=== PATIENT | male | born 1940 | race Caucasian/White ===

== ENCOUNTER 2022-08-16 05:27 | Observation (INO) ==
[2022-08-16] MEDS ORDERED: LACTATED RINGERS 1,000 ML IV SCH (06:00)
[2022-08-16] MEDS ORDERED: ceFAZolin 2,000 MG/50 ML DUPLEX IV ONE (06:30)
[2022-08-16] MEDS ORDERED: VANCOMYCIN INJ 1,000 MG in SODIUM CHLORIDE 0.9% 250 ML IV ONE (06:30)
[2022-08-16] MEDS ORDERED: ACETAMINOPHEN 500 MG TABLET PO ONE (07:29)
[2022-08-16] MEDS ORDERED: FAMOTIDINE 20 MG TABLET PO ONE (07:29)
[2022-08-16] MEDS ORDERED: DIAZEPAM 5 MG TABLET PO ONE (07:29)
[2022-08-16] MEDS ORDERED: GABAPENTIN 400 MG CAPSULE PO ONE (07:29)
[2022-08-16] MEDS ORDERED: fentaNYL 100 MCG/2 ML VIAL ONE (09:18)
[2022-08-16] MEDS ORDERED: buprenorphine HCL 0.3 MG/ML VIAL ONE (09:18)
[2022-08-16] MEDS ORDERED: KETAMINE 500 MG/10 ML VIAL ONE (09:18)
[2022-08-16] MEDS ORDERED: MIDAZOLAM 2 MG/2 ML VIAL ONE (09:18)
[2022-08-16] MEDS ORDERED: ROPIVACAINE 0.5% 30 ML VIAL ONE (10:21)
[2022-08-16] MEDS ORDERED: DEXAMETHASONE 4 MG/1 ML VIAL ONE (10:21)
[2022-08-16] MEDS ORDERED: LIDOCAINE 1% 5 ML VIAL ONE (10:21)
[2022-08-16] MEDS ORDERED: GLYCOPYRROLATE 0.4 MG/2 ML VIAL ONE (10:52)
[2022-08-16] MEDS ORDERED: ePHEDrine 50 MG/ML VIAL ONE (11:31)
[2022-08-16] MEDS ORDERED: BACITRACIN OINT 0.9 GM PACK TOP ONE (11:50)
[2022-08-16] MEDS ORDERED: LACTATED RINGERS 1,000 ML IV ONE (11:54)
[2022-08-16] MEDS ORDERED: ONDANSETRON 4 MG/2 ML VIAL ONE (11:54)
[2022-08-16] MEDS ORDERED: TRANEXAMIC ACID 1,000 MG/10 ML VIAL ONE (11:54)
[2022-08-16] MEDS ORDERED: SODIUM CHLORIDE 0.9% 250 ML IV ONE ×2 (11:54→12:33)
[2022-08-16] MEDS ORDERED: LIDOCAINE 2% 5 ML VIAL ONE (11:54)
[2022-08-16] MEDS ORDERED: propofoL 200 MG/20 ML VIAL IV ONE ×3 (11:54→12:33)
[2022-08-16] MEDS ORDERED: ONDANSETRON 4 MG/2 ML VIAL IV PRN (13:00)
[2022-08-16] MEDS ORDERED: MORPHINE 2 MG/1 ML SYRINGE IV PRN ×2 (13:00)
[2022-08-16] MEDS ORDERED: diphenhydrAMINE CAP 25 MG CAPSULE PO PRN (13:00)
[2022-08-16] MEDS ORDERED: MAGNESIUM HYDROXIDE SUSP 30 ML UDCUP PO PRN (13:00)
[2022-08-16] MEDS ORDERED: ZALEPLON 5 MG CAPSULE PO PRN (13:00)
[2022-08-16] MEDS: ceFAZolin 2,000 MG/50 ML DUPLEX IV SCH ×2 (17:17→21:38)
[2022-08-16] MEDS: KETOROLAC 15 MG/1 ML VIAL IV SCH ×2 (18:52→21:39)
[2022-08-16] MEDS ORDERED: ALFUZOSIN 10 MG TABLET PO SCH (21:00)
[2022-08-16] MEDS: DOCUSATE SODIUM 100 MG CAPSULE PO SCH (21:35)
[2022-08-16] MEDS: ASPIRIN EC 81 MG TABLET PO SCH (21:35)
[2022-08-16] MEDS: allopurinoL 300 MG TABLET PO SCH (21:35)
[2022-08-16] MEDS: ATORVASTATIN 10 MG TABLET PO SCH (21:44)
[2022-08-16] MEDS: MULTIVITAMIN (CENTRUM) TABLET PO SCH (21:44)
[2022-08-17 05:20] LABS: Basophils % 0.1 % (0.0-0.8); Hematocrit 32.7 VOL% (42.0-52.0); Immature Granulocytes % 0.6 %; Immature Granulocytes Absolute 0.08 #; Lymphocytes # 1.7 10*3/uL (1.4-4.0); Lymphocytes % 11.8 % (21.2-54.2); Mean Corpuscular HGB Conc 33.6 GM/DL (32-36); Mean Corpuscular Volume 93.2 FL (87-102); Monocytes % 13.6 % (1.7-12.7); Neutrophils % 73.9 % (38.7-73.9); Platelet Count 163 T/CUMM (130-400); Red Blood Count 3.51 MC/CUMM (3.8-5.5); White Blood Count 14.39 T/CUMM (4-12)
[2022-08-17 05:49] LABS: Calcium 8.9 MG/DL (8.5-10.1)
[2022-08-17] MEDS: LACTATED RINGERS 1,000 ML IV SCH ×2 (06:41→06:42)
[2022-08-17] MEDS: OMEGA 3 ACID ETHYL ESTERS 1 GM CAPSULE PO SCH (10:07)
[2022-08-17] MEDS: CETIRIZINE 10 MG TABLET PO SCH (10:07)
[2022-08-17] MEDS: ASCORBIC ACID 500 MG TABLET PO SCH (10:07)
[2022-08-17] MEDS: LEVOTHYROXINE 125 MCG TABLET PO SCH (10:07)
[2022-08-17] MEDS: TIMOLOL 0.5% OPH SOLN 5 ML BOTTLE BOTH EYES SCH (10:08)
[2022-08-17] MEDS: amLODIPine 5 MG TABLET PO SCH (10:08)
[2022-08-17] MEDS: LATANOPROST 0.005% OPH SOLN 2.5 ML BOTTLE BOTH EYES SCH (10:08)
[2022-08-17] MEDS: DOCUSATE SODIUM 100 MG CAPSULE PO SCH ×2 (10:08→20:45)
[2022-08-17] MEDS: FONDAPARINUX 2.5 MG/0.5 ML SYRINGE SUBCUT SCH (10:08)
[2022-08-17] MEDS: TAMSULOSIN 0.4 MG CAPSULE PO SCH ×2 (14:32→20:43)
[2022-08-17] MEDS: MULTIVITAMIN (CENTRUM) TABLET PO SCH (20:43)
[2022-08-17] MEDS: ASPIRIN EC 81 MG TABLET PO SCH (20:43)
[2022-08-17] MEDS: allopurinoL 300 MG TABLET PO SCH (20:44)
[2022-08-17] MEDS: ATORVASTATIN 10 MG TABLET PO SCH (22:30)
[2022-08-18 05:32] LABS: Basophils % 0.1 % (0.0-0.8); Eosinophils # 0.1 10*3/uL (0.0-0.87); Eosinophils % 0.7 % (0.00-10.9); Hematocrit 29.9 VOL% (42.0-52.0); Hemoglobin 10.4 GM/DL (14.0-18.0); Immature Granulocytes % 0.4 %; Immature Granulocytes Absolute 0.05 #; Lymphocytes % 17.1 % (21.2-54.2); Mean Corpuscular HGB Conc 34.8 GM/DL (32-36); Mean Corpuscular Volume 91.2 FL (87-102); Mean Platelet Volume 12.1 FL (9.6-12.0); Monocytes # 1.9 10*3/uL (0.11-0.8); Monocytes % 16.6 % (1.7-12.7); Neutrophils % 65.1 % (38.7-73.9); Platelet Count 130 T/CUMM (130-400); Red Blood Count 3.28 MC/CUMM (3.8-5.5); Red Cell Distribution Width 13.7 % (9.3-17.3); White Blood Count 11.65 T/CUMM (4-12)
[2022-08-18 05:59] LABS: Eosinophils 2 % (0-10); Lymphocytes 15 % (20-55); Platelet Estimate Normal; Total Cells Counted 100
[2022-08-18] MEDS: LEVOTHYROXINE 125 MCG TABLET PO SCH (06:01)
[2022-08-18] MEDS: CETIRIZINE 10 MG TABLET PO SCH (09:26)
[2022-08-18] MEDS: DOCUSATE SODIUM 100 MG CAPSULE PO SCH ×2 (09:26→20:39)
[2022-08-18] MEDS: amLODIPine 5 MG TABLET PO SCH (09:26)
[2022-08-18] MEDS: OMEGA 3 ACID ETHYL ESTERS 1 GM CAPSULE PO SCH (09:26)
[2022-08-18] MEDS: ASCORBIC ACID 500 MG TABLET PO SCH (09:26)
[2022-08-18] MEDS: TAMSULOSIN 0.4 MG CAPSULE PO SCH ×2 (09:26→20:40)
[2022-08-18] MEDS: FONDAPARINUX 2.5 MG/0.5 ML SYRINGE SUBCUT SCH (09:28)
[2022-08-18] MEDS: TIMOLOL 0.5% OPH SOLN 5 ML BOTTLE BOTH EYES SCH (11:09)
[2022-08-18] MEDS: LATANOPROST 0.005% OPH SOLN 2.5 ML BOTTLE BOTH EYES SCH (11:09)
[2022-08-18] MEDS: KETOROLAC 15 MG/1 ML VIAL IV SCH (11:10)
[2022-08-18] MEDS: ceFAZolin 2,000 MG/50 ML DUPLEX IV SCH (11:10)
[2022-08-18] MEDS: LACTATED RINGERS 1,000 ML IV SCH (11:10)
[2022-08-18] MEDS: ASPIRIN EC 81 MG TABLET PO SCH (20:40)
[2022-08-18] MEDS: allopurinoL 300 MG TABLET PO SCH (20:40)
[2022-08-18] MEDS: ATORVASTATIN 10 MG TABLET PO SCH (20:40)
[2022-08-18] MEDS: MULTIVITAMIN (CENTRUM) TABLET PO SCH (22:58)
[2022-08-19] MEDS: LEVOTHYROXINE 125 MCG TABLET PO SCH (05:53)
[2022-08-19] MEDS: amLODIPine 5 MG TABLET PO SCH (09:21)
[2022-08-19] MEDS: FONDAPARINUX 2.5 MG/0.5 ML SYRINGE SUBCUT SCH (09:21)
[2022-08-19] MEDS: DOCUSATE SODIUM 100 MG CAPSULE PO SCH (09:21)
[2022-08-19] MEDS: ASCORBIC ACID 500 MG TABLET PO SCH (09:21)
[2022-08-19] MEDS: LATANOPROST 0.005% OPH SOLN 2.5 ML BOTTLE BOTH EYES SCH (09:22)
[2022-08-19] MEDS: TAMSULOSIN 0.4 MG CAPSULE PO SCH (09:22)
[2022-08-19] MEDS: OMEGA 3 ACID ETHYL ESTERS 1 GM CAPSULE PO SCH (09:22)
[2022-08-19] MEDS: TIMOLOL 0.5% OPH SOLN 5 ML BOTTLE BOTH EYES SCH (09:26)
[2022-08-19 10:49] VITALS: BP 154/78
== END 2022-08-19 14:15 | disposition home health service (06) ==
LOC: N.OR 05:27 → N.3E 05:27 → N.SDSINP 05:27 → N.3E 14:23
PROVIDERS: ADMIT Orthopaedic Surgery; ATTEND Orthopaedic Surgery